=== PATIENT | female | born 1960 | race African-American/Black ===

== ENCOUNTER 2017-03-23 06:29 | Emergency (ER) | payer OTHER ==
[~2017-03-23] VITALS: Ht 167.6 cm; Wt 82.7 kg
[~2017-03-23 06:29] MED LIST: GEMF600T3 PO; LEVO150 PO; LISI-662 PO; VICOT PO
[2017-03-23] MEDS ORDERED: OXYMETAZOLINE HCL 0.05% 15 ML NASAL SPRAY NASAL ONE (08:15)
[2017-03-23 09:11] VITALS: BP 117/62
== END 2017-03-23 09:43 | disposition home or self-care (01) ==
LOC: EMS 06:30
DX: J06.9 Acute upper respiratory infection, unspecified (principal); R51 Headache; E03.9 Hypothyroidism, unspecified; E78.00 Pure hypercholesterolemia, unspecified
CPT/HCPCS: 71020; 99284

== ENCOUNTER 2017-12-03 07:54 | Emergency (ER) | payer OTHER ==
[~2017-12-03] VITALS: Ht 165.1 cm; Wt 77.3 kg
[~2017-12-03 07:54] MED LIST changes: -GEMF600T3 PO; +GEMF600T5 PO
[2017-12-03 08:35] LABS: BASOPHILS % (AUTO) 0.9 % (0.0-2.0); EOSINOPHILS % (AUTO) 5.3 % (1.0-6.0); HEMOGLOBIN 14.1 g/dL (12.0-16.0); LYMPHOCYTES # (AUTO) 2.1 K/uL (1.0-4.8); LYMPHOCYTES % (AUTO) 37.9 % (22.0-44.0); MEAN CORPUSCULAR HEMOGLOBIN 32.1 pg (26.0-34.0); MEAN CORPUSCULAR HGB CONC 34.3 G/dL (31.0-37.0); MEAN CORPUSCULAR VOLUME 94 fL (80-100); MONOCYTES # (AUTO) 0.4 K/uL (0.1-1.0); MONOCYTES % (AUTO) 6.5 % (2.0-9.0); NEUTROPHILS # (AUTO) 2.7 K/uL (1.8-7.7); NEUTROPHILS % (AUTO) 49.4 % (40.0-70.0); PLATELET COUNT (AUTO) 254 K/uL (150-450); RED BLOOD CELL COUNT(AUTO) 4.37 MIL/uL (4.00-5.20); RED CELL DISTRIBUTION WIDTH 13.3 % (11.5-14.5)
[2017-12-03 08:51] LABS: ANION GAP 10 mmol/L (8-16); CARBON DIOXIDE 23 mmol/L (22-29); CHLORIDE 107 mmol/L (98-107); CREATININE 0.74 mg/dL (0.60-1.30); GLOMERULAR FILTR. RATE CALC > 60 mL/min (>60); GLUCOSE,RANDOM 100 mg/dL (70-110); POTASSIUM 3.9 mmol/L (3.5-5.1); SODIUM SERUM 140 mmol/L (136-145); UREA NITROGEN, BLOOD 16 mg/dL (7-18)
[2017-12-03 09:08] VITALS: BP 131/80
[2017-12-03 09:12] LABS: B-TYPE NATRIURETIC PEPTIDE 14 pg/mL (0-100)
[2017-12-03 09:16] LABS: ALANINE AMINOTRANSFERASE 19 U/L (12-78); ALBUMIN 3.5 g/dL (3.4-5.0); ALKALINE PHOSPHATASE 59 U/L (46-116); ASPARTATE AMINOTRANSFERASE 16 U/L (15-37); BILIRUBIN,TOTAL 0.4 mg/dL (0.1-1.0); CREATINE KINASE MB 0.6 ng/mL (0-5); CREATINE KINASE, TOTAL 95 U/L (26-192); TOTAL PROTEIN, SERUM 7.4 g/dL (6.4-8.2)
== END 2017-12-03 09:29 | disposition home or self-care (01) ==
LOC: EMS 07:55
DX: R07.81 Pleurodynia (principal); R06.02 Shortness of breath; E78.00 Pure hypercholesterolemia, unspecified; I10 Essential (primary) hypertension; E03.9 Hypothyroidism, unspecified; G89.29 Other chronic pain; Z79.899 Other long term (current) drug therapy
CPT/HCPCS: 85379; 93005; 99285